=== PATIENT | male | born 1985 | race Caucasian/White ===

== ENCOUNTER 2023-04-03 08:30 | Emergency (ER) | payer OTHER ==
[~2023-04-03] VITALS: Ht 177.8 cm; Wt 115.1 kg
[2023-04-03 09:14] VITALS: BP 161/99
== END 2023-04-03 09:15 | disposition home or self-care (01) ==
LOC: ED 08:30
DX: K62.5 Hemorrhage of anus and rectum (principal)
CPT/HCPCS: 99283

== ENCOUNTER 2025-07-12 07:52 | Day surgery (SDC) | payer OTHER ==
[2025-06-27 16:31] VITALS: BP 136/92
[~2025-07-12] VITALS: Ht 177.8 cm; Wt 134.0 kg
[~2025-07-12 07:52] MED LIST: FISH OIL EC 1,1 EAC1 PO; IBLOOD GLUCOSE TEST STRIP 1 EA TEST VI PRN; LACTATED RINGER'S 1,000 ML IV SCH; LIDOCAINE HCL 1% 5 ML SDV INJ ONE; MEN'S DAILY FO1 EACH PO
[2025-07-12] MEDS ORDERED: LIDOCAINE HCL 2% 5 ML SDV ONE (07:55)
[2025-07-12 08:00] VITALS: BP 161/107
[2025-07-12 08:13] VITALS: BP 155/104
[2025-07-12 09:23] VITALS: BP 146/108
--- NOTE | 2025-07-12 09:43 | NUR ---
07/12/25 0943 Sheets,Brianna 0802 PT ARRIVED TO PACU ON 6L VIA MASK, LARGE AMOUNT OF SNORING NOTED. HOB INCREASED AND PT WAKES SLIGHTLY, PT REORIENTED TO PACU.
== END 2025-07-12 09:30 | disposition home or self-care (01) ==
LOC: DS 07:52
PROVIDERS: ATTEND Surgery
PROC: 0DJD8ZZ Inspection of Lower Intestinal Tract, Via Natural or Artificial Opening Endoscopic (ICD-10-PCS; principal; 2025-07-12 08:40)
DX: K92.1 Melena (principal); K57.30 Diverticulosis of large intestine without perforation or abscess without bleeding; K64.8 Other hemorrhoids; E66.01 Morbid (severe) obesity due to excess calories; Z68.41 Body mass index [BMI] 40.0-44.9, adult; Z88.8 Allergy status to other drugs, medicaments and biological substances
CPT/HCPCS: 00811; J2003; J2704; J7121